=== PATIENT | female | born 1975 | race Caucasian/White ===

== ENCOUNTER 2022-11-17 09:40 | Outpatient (CLI) | payer OTHER, MEDICAID, SELFPAY ==
[2022-11-17 14:18] LABS: Cholesterol* 188 mg/dL (90-199)
[2022-11-17 14:19] LABS: Glucose* 82 mg/dL (60-115); HDL Cholesterol* 68 mg/dL (>=50); LDL Cholesterol Calculated 105 mg/dL (<100); Triglycerides* 75 mg/dL (40-149)
== END 2022-11-17 09:41 | disposition home or self-care (01) ==
PROVIDERS: Visit Provider Obstetrics & Gynecology
DX: Z01.419 Encounter for gynecological examination (general) (routine) without abnormal findings (principal); Z13.6 Encounter for screening for cardiovascular disorders; Z13.1 Encounter for screening for diabetes mellitus
CPT/HCPCS: 80061; 82947

== ENCOUNTER 2023-01-28 11:00 | Outpatient (CLI) | payer OTHER, MEDICAID, SELFPAY ==
--- NOTE | 2023-01-28 11:30 | CRLHL7_ITS ---
For Patients: As a result of the Century Cures Act, medical imaging exams and procedure reports are released immediately into your electronic medical record. You may view this report before your referring provider. If you have questions, please contact your health care provider. BILATERAL SCREENING MAMMOGRAM WITH COMPUTER-AIDED DETECTION AND TOMOSYNTHESIS TECHNIQUE: CC and MLO views were obtained. These mammographic images have been obtained using full-field digital technique. These mammographic images were interpreted with the benefit of computer-aided detection. Breast Tomosynthesis was used in this interpretation. COMPARISON FILM: Baseline. FINDINGS: The breasts are heterogeneously dense, which may obscure small masses IMPRESSION: There is no radiographic evidence for malignancy. ASSESSMENT: BI-RADS Category 1: Negative RECOMMENDATION: Routine screening mammogram in 1 year. A lay language report of this examination will be provided to the patient. Faisal Boone M.D. Diagnostic Radiologist [email or web address] MEE/roosevelt Transcribed: 4:45 p.joanna albert/Dictated by: Faisal Boone MD @ 01/28/2023 12:51:00 PM (Electronically Signed)
== END 2023-01-28 11:01 | disposition home or self-care (01) ==
LOC: MAMMO 11:01
PROVIDERS: Visit Provider Obstetrics & Gynecology
DX: Z12.31 Encounter for screening mammogram for malignant neoplasm of breast (principal); R92.2 Inconclusive mammogram
CPT/HCPCS: 77063; 77067

== ENCOUNTER 2023-03-23 22:13 | Day surgery (SDC) | payer OTHER, MEDICAID, SELFPAY ==
[2023-03-23 22:31] VITALS: BP 137/72; PULSE 83; RESP 16; TEMP 36.4; O2SAT 98; BMI 22.1
[2023-03-23 23:46] LABS: Basophils Percent Auto 0.3 % (0.0-3.0); Eosinophils Percent Auto 1.3 % (0.0-7.0); Hematocrit 42.8 % (33.0-51.0); Hemoglobin* 14.4 gm/dL (12.0-16.0); Immature Granulocytes Pct Auto 0.4 %; Lymphocytes Percent Auto 21.6 % (20-44); Mean Corpuscular HGB Conc 34 gm/dL (32-36); Mean Corpuscular Hemoglobin 29 pg (26-34); Mean Corpuscular Volume 87 fL (80-100); Monocytes Percent Auto 7.9 % (0.0-11.0); Neutrophils Percent Auto 68.5 % (42.0-72.0); Platelet Count* 297 K/uL (140-440); RDW Coefficient of Variation % 12.8 % (11.5-15.5); White Blood Count* 11.98 K/uL (4.50-11.00)
[2023-03-23 23:51] LABS: Slide Review Reflex No
[2023-03-23 23:53] LABS: Immature Granulocytes Abs Auto 0.05 K/uL (0.00-0.30)
[2023-03-24] VITALS (56 sets, daily range): BP systolic 53–119; BP diastolic 32–100; PULSE 57–105; RESP 16–18; TEMP 36.2–36.5; O2SAT 87–100
[2023-03-24] LABS: Basophils Absolute Auto 0.04 K/uL (0.00-0.30); Eosinophils Absolute Auto 0.16 K/uL (0.00-0.50); Lymphocytes Absolute Auto 2.59 K/uL (0.90-2.90); Neutrophils Absolute Auto 8.19 K/uL (1.7-7.0)
[2023-03-24] MEDS: 0.9 % SODIUM CHLORIDE 1000 ml 1,000 ML IV ×2 (00:10→01:15)
--- NOTE | 2023-03-24 00:13 | ED.NURSE ---
Pad has soaked through 2 pads since arrival to ED. Large clots noted. Reports dizziness with position change. VSS.
--- NOTE | 2023-03-24 00:20 | CRLHL7_ITS ---
For Patients: As a result of the Cures Act, medical imaging exams and procedure reports are released immediately into your electronic medical record. You may view this report before your referring provider. If you have questions, please contact your health care provider. INDICATION: Miscarriage, bleeding. TECHNIQUE: Ultrasound OB pelvis transvaginal. Real-time garcia-scale imaging of the pelvis was performed. COMPARISON: Pelvic ultrasound 03/23/2023. FINDINGS: There is an irregular, complex lesion with cystic component in the lower uterine endometrial canal/endocervical canal. This appears to represent the remnant gestational sac that was seen higher in the endometrial canal on the prior study. The uterus is otherwise unremarkable. Normal appearing right ovary. Nonvisualized left ovary. No abnormal free fluid in the pelvis. IMPRESSION: Irregular, complex lesion with cystic component in the lower uterine endometrial canal/endocervical canal, likely representing the remnant gestational sac that was seen on the prior exam. Findings compatible with a failed intrauterine gestation and incomplete miscarriage. Recommend close clinical follow-up with serial beta HCGs and repeat ultrasound, as clinically indicated. Dictated by Rolando Horton MD @ 03/24/2023 1:17:58 AM (Electronically Signed)
--- NOTE | 2023-03-24 00:52 | ED.GENADULT ---
HPI - General Adult General Chief complaint: Vaginal Bleeding Stated complaint: 11wk miscarriage pain and heavy bleeding Time Seen by Provider: 03/23/23 23:32 History of Present Illness HPI narrative: Patient reports she needs to be seen for miscarriage. Reports filling up pad in 10- 15 minutes for the past 4 hours. Denies light headedness, nausea or weakness. 47-year-old woman with active miscarriage presenting with 4 hours of heavy bleeding such that she soaking through a heavy pad every 10-15 minute she says. Has soaked through clothing as well. She is feeling little lightheaded now. Does have pain but does not feel she needs anything for pain at the moment. No fever. Was seen with ultrasound on 03/10 showing smaller than dates pole around 6 weeks. Follow-up ultrasound this morning after began spotting couple of days ago as follows FINDINGS: Intrauterine gestational sac with internal echoes. Mean sac diameter 2.6 cm, 7 weeks 4 days. pole measures 2.4 millimeters, 5 weeks 5 days no heart tones. No ectopic . No adnexal mass. IMPRESSION: Nonviable intrauterine gestation. Past medical for Ms. Gallo includes history of 2 miscarriages. First requiring a D&C and due to heavy bleeding and 2nd also received a D&C prophylactically. She is type O negative. Did receive RhoGAM during this course. Related Data Home Medications Medication Instructions Recorded Confirmed docosahexaenoic acid 200 mg mg PO 03/10/23 03/10/23 capsule ( DHA) Allergies Allergy/AdvReac Type Severity Reaction Status Date / Time Sulfa (Sulfonamide Allergy Verified 03/10/23 13:59 Antibiotics) Review of Systems Status of ROS: Reports: 6 or more systems reviewed and unremarkable except as noted in History and below [facility] Medical History Spontaneous ?O03.9 - Complete or unspecified spontaneous without complication (ICD-10) Precipitate labor, with delivery ?O62.3 - Precipitate labor (ICD-10) Positive test for human papillomavirus (HPV) (12/31/17) Normal spontaneous vaginal delivery ?O80 - Encounter for full-term uncomplicated delivery (ICD-10) Surgical History History of D&C (02/24/21) ?Z98.890 - Other specified postprocedural states (ICD-10) History of D&C (08/21/21) ?Z98.890 - Other specified postprocedural states (ICD-10) History of hysteroscopy (2006) ?Z98.890 - Other specified postprocedural states (ICD-10) History of tonsillectomy (1987) ?Z90.89 - Acquired absence of other organs (ICD-10) History of placement of ear tubes ?Z96.22 - Myringotomy tube(s) status (ICD-10) Family History Mother High blood pressure High cholesterol Father High blood pressure High cholesterol Maternal Grandmother Colon cancer Social History Smoking Status: Former smoker Do you use any of these nicotine containing products: None How often do you have a drink containing alcohol: never How often do you have six or more drinks on one occasion: Never AUDIT-C Alcohol total score: 0 Non-prescribed substance use: denies use Are you now , , , , never or living with a partner: Social isolation score (0-1 are the most socially isolated patients): 0 Little interest or pleasure in doing things: not at all Feeling down, depressed, or hopeless: not at all Are you currently sexually active: Yes Are you using contraception or practicing any form of control: No Exam Narrative: Exam Narrative: Pleasant. Seems little uncomfortable. Breathing easily. Skin is warm and dry. Well perfused peripherally. Lungs are clear. Heart with regular rate and rhythm. No murmur rub or gallop identified. Abdomen with normoactive bowel sounds is soft and quite tender across the low pelvis. exam is deferred She is accompanied by significant other Const: Vital Signs, click to edit/add: Vital Signs - 24 hr 03/23/23 22:31 03/24/23 00:10 03/24/23 00:11 Temperature 97.5 F L Pulse Rate 85 78 Pulse Rate [Pulse Oximeter] 83 Respiratory Rate 16 18 Blood Pressure 119/100 H 116/65 Blood Pressure [Ri ght Upper Arm] 137/72 Pulse Oximetry 98 98 97 Oxygen Delivery Me thod Room Air 06/06/23 00:12 03/24/23 00:12 03/24/23 00:14 Temperature Pulse Rate 78 80 Pulse Rate [Pulse Oximeter] 88 Respiratory Rate 18 Blood Pressure Blood Pressure [Ri ght Upper Arm] 119/100 H Pulse Oximetry 100 98 99 [facility] 03/24/23 00:16 03/24/23 01:02 03/24/23 01:03 Temperature Pulse Rate 83 83 88 Pulse Rate [Pulse Oximeter] Respiratory Rate Blood Pressure 116/65 Blood Pressure [Ri ght Upper Arm] Pulse Oximetry 98 100 99 Oxygen [facility] 03/24/23 01:04 03/24/23 01:06 03/24/23 01:08 Temperature Pulse Rate 88 89 94 Pulse Rate [Pulse Oximeter] Respiratory Rate Blood Pressure Blood Pressure [Ri ght Upper Arm] Pulse Oximetry 99 98 100 [facility] 03/24/23 01:10 03/24/23 01:12 03/24/23 01:14 Temperature Pulse Rate 97 104 H 70 Pulse Rate [Pulse Oximeter] Respiratory Rate Blood Pressure Blood Pressure [Ri ght Upper Arm] Pulse Oximetry 98 98 87 L [facility]xygen [facility] 03/24/23 01:16 03/24/23 01:17 03/24/23 01:18 Temperature Pulse Rate 59 L 57 L Pulse Rate [Pulse Oximeter] Respiratory Rate Blood Pressure 53/32 L 56/33 L 59/36 L Blood Pressure [Ri ght Upper Arm] Pulse Oximetry 100 100 Oxygen [facility] 03/24/23 01:21 03/24/23 01:22 03/24/23 01:24 Temperature Pulse Rate 64 65 67 Pulse Rate [Pulse Oximeter] Respiratory Rate Blood Pressure 65/40 L 88/61 L Blood Pressure [Ri ght Upper Arm] Pulse Oximetry 100 99 98 Oxygen Delivery [facility] 03/24/23 01:24 03/24/23 01:25 03/24/23 01:26 Temperature Pulse Rate 67 70 77 Pulse Rate [Pulse Oximeter] Respiratory Rate Blood Pressure 88/61 L 87/61 L Blood Pressure [Ri ght Upper Arm] Pulse Oximetry 98 98 92 Oxygen Delivery La thod 03/24/23 01:27 03/24/23 01:28 03/24/23 01:30 Temperature Pulse Rate 68 72 71 Pulse Rate [Pulse Oximeter] Respiratory Rate Blood Pressure Blood Pressure [Ri ght Upper Arm] Pulse Oximetry 99 93 100 Oxygen Delivery Me thod 03/24/23 01:31 03/24/23 01:32 03/24/23 01:34 Temperature Pulse Rate 69 66 70 Pulse Rate [Pulse Oximeter] Respiratory Rate Blood Pressure 93/59 L Blood Pressure [Ri ght Upper Arm] Pulse Oximetry 99 100 100 Oxygen Delivery Me thod 03/24/23 01:36 03/24/23 01:37 03/24/23 01:38 Temperature Pulse Rate 71 67 71 Pulse Rate [Pulse Oximeter] Respiratory Rate Blood Pressure 97/59 L Blood Pressure [Ri ght Upper Arm] Pulse Oximetry 99 99 99 Oxygen Delivery La thod 03/24/23 01:40 03/24/23 01:41 03/24/23 01:42 Temperature Pulse Rate 83 79 86 Pulse Rate [Pulse Oximeter] Respiratory Rate Blood Pressure 110/70 Blood Pressure [Ri ght Upper Arm] Pulse Oximetry 100 100 94 Oxygen Delivery Me thod 03/24/23 01:44 03/24/23 01:46 Temperature Pulse Rate 88 79 Pulse Rate [Pulse Oximeter] Respiratory Rate Blood Pressure Blood Pressure [Ri ght Upper Arm] Pulse Oximetry 100 100 Oxygen Delivery Me thod Documenting provider has reviewed patient's vital signs: yes Course Vital Signs Vital signs: Initial Vital Signs Temperature 97.5 F L 03/23/23 22:31 Temperature Source Temporal Artery Scan 03/23/23 22:31 Pulse Rate 83 03/23/23 22:31 Respiratory Rate 16 03/23/23 22:31 Blood Pressure 137/72 03/23/23 22:31 Blood Pressure Mean 93 03/23/23 22:31 Pulse Oximetry 98 03/23/23 22:31 Oxygen Delivery Method Room Air 03/23/23 22:31 Vital Signs Temperature 97.5 F L 03/23/23 22:31 Pulse Rate 83 03/23/23 22:31 Respiratory Rate 16 03/23/23 22:31 Blood Pressure 137/72 03/23/23 22:31 Pulse Oximetry 98 03/23/23 22:31 Oxygen Delivery Method Room Air 03/23/23 22:31 Temperature 97.5 F L 03/23/23 22:31 Pulse Rate 79 03/24/23 01:46 Respiratory Rate 18 03/24/23 00:12 Blood Pressure 110/70 03/24/23 01:41 Pulse Oximetry 100 03/24/23 01:46 Oxygen Delivery Method Room Air 03/24/23 00:12 Medical Decision Making MDM Narrative Medical decision making narrative: IVs initiated. I have ordered for a L normal saline and a CBC as well as pelvic ultrasound. Initially Ms. Jaffe mentions that she received ultrasound this morning but I am understanding a change in status what occurred her to continue with this. My concern is that she will have excessive hemorrhage related to this spontaneous miscarriage. Initial hemoglobin is reassuring at 14.4. I did discuss this case with OB on-call. Recommending this ultrasound be done. Discussed with supervisor plate pasting noting gestational sac nearing cervix. Radiology over-read as below IMPRESSION: Irregular, complex lesion with cystic component in the lower uterine endometrial canal/endocervical canal, likely representing the remnant gestational sac that was seen on the prior exam. Findings compatible with a failed intrauterine gestation and incomplete miscarriage. Recommend close clinical follow-up with serial beta HCGs and repeat ultrasound, as clinically indicated. Had ordered fentanyl as a p.r.n.. Given this fentanyl and pressures subsequently dropped precipitously to 50s over 40s I believe. Was quite pale on my assessment. Another line was placed. Initiated another L normal saline. Hemoglobin recheck at that time is 10.6 which I would presume is already lagging number, though affected also by the L of fluid she received. With Trendelenburg, fluids and time did improve. Pressures and color improved. I think this is more of an opiate and vasovagal effect however is rapidly trending down in hemoglobin. Have ordered 2 units of packed red cells. Discussed with Ob again who will be arriving shortly presumably to do a D&C. Lab Data Lab results reviewed: Yes I reviewed the patient's lab results Labs: Lab Results 03/23/23 03/24/23 Range/Units 23:40 01:29 WBC 11.98 H (4.50-11.00) K/uL RBC 4.90 (4.00-5.20) m/uL Hgb 14.4 10.6 L (12.0-16.0) gm/dL Hct 42.8 (33.0-51.0) % MCV 87 (80-100) fL MCH 29 (26-34) pg MCHC 34 (32-36) gm/dL RDW Coeff of Donnie 12.8 (11.5-15.5) % Plt Count 297 (140-440) K/uL Neut % (Auto) 68.5 (42.0-72.0) % Lymph % (Auto) 21.6 (20-44) % [place] % (Auto) 7.9 (0.0-11.0) % Eos % (Auto) 1.3 (0.0-7.0) % Baso % (Auto) 0.3 (0.0-3.0) % Neut # (Auto) 8.19 H (1.7-7.0) K/uL Lymph # (Auto) 2.59 (0.90-2.90) K/uL [place] # (Auto) 0.90 (0.00-0.90) K/UL Eos # (Auto) 0.16 (0.00-0.50) K/uL Baso # (Auto) 0.04 (0.00-0.30) K/uL Critical Care Time Critical Care Time Total Critical Care Time in Minutes: 45 Discharge Plan Discharge Clinical Impression: Spontaneous miscarriage, Vaginal hemorrhage Patient Disposition: XFER to OR Condition: Stable Prescriptions: No Action DHA 200 mg capsule PO Follow Up/Referrals: Janny Madison MD [Primary Care Provider] -
[2023-03-24] MEDS: fentaNYL 100 MCG/2 ML inj 50 MCG IVP (01:04)
[2023-03-24 01:42] LABS: Hemoglobin* 10.6 gm/dL (12.0-16.0)
--- NOTE | 2023-03-24 01:42 | ED.NURSE ---
At 0115 patient's came out of the room and alerted staff that patient needed hep. On writers arrival to the room patient is noted to be pale, lethargic and diaphoretic. She states that she is dizzy, nauseated and feels like she is going to pass out. Pre Planning Advisor assessed VS. Patient hypotensive at 53/32. She was placed in Trendelenburg and MD alerted. Second IV line placed. IVF started. MD in to assess patient.
--- NOTE | 2023-03-24 02:02 | ED.NURSE ---
Blood consent signed. PEDRO and Dr. Shen in to see patient. Emergent PRBC started at 0201 at a rate of 125ml/hr.
--- NOTE | 2023-03-24 02:08 | P.PCNOB_ITS ---
Procedure Procedure: DILATION AND CURRETAGE PREOPERATIVE DIAGNOSIS: 1. Incomplete 2. Acute vaginal bleeding POSTOPERATIVE DIAGNOSIS: Same PROCEDURE: 1. EUA 2. Suction dilation and curettage SURGEON: Nolvia Shen MD FLUOROSCOPE OPERATOR: None ANESTHESIA: Monitored anesthesia care FINDINGS: 1. A 6 week size, mobile, anteverted uterus, no adnexal masses on EUA 2. Cervix dilated to 4 cm with protruding gestational sac and blood clots 2. Normal external genitalia FLUIDS: 150 cc ESTIMATED BLOOD LOSS: 200 cc URINE OUTPUT: 50 cc COMPLICATIONS: None PREOP ANTIBIOTIC: 200 mg of doxycycline SPECIMEN: 1. Products of conception, sent for cytogenetics INDICATIONS: Brianna is a 47 yo , with diagnosed with an incomplete and presenting to the emergency department with acute vaginal bleeding. TVUS on presentation showed gestational sac in the lower uterine endocervical canal. During her time in the ED, her hgb decreased from 14.4 to 10.6. Additionally, she became hypotensive and tachycardic. Due to her hemodynamic instability, she was given 1 unit of packed red blood cells and prepped for an emergency dilation curettage. I reviewed how this procedure is performed. This is done in the operating room with conscious sedation and paracervical block (usually). The cervix is dilated open, a plastic curette is advanced into the uterus and connected to a vacuum. The vacuum then pulls the out of the uterus. All tissue removed from the uterus is sent to the lab for testing to verify that tissue was obtained. I do not recommend cytogenetic testing unless the patient has had more than 1 miscarriage. Ultrasound guidance is not required. Risks with a suction curettage include injury to cervix or uterus 1/400-1/500. Infection in the uterus resulting in endometritis 1/400-1/500. She will receive antibiotics in the IV in the operating room prior to the procedure to prevent infection. Chance of Asherman syndrome resulting in inability to conceive a in the future: 10/2499. Chance of anesthesia complications are extremely rare: Less than 1/100,000 especially with negative personal or family history of anesthesia issues. Expected recovery: Mild cramping after miscarriage/surgery usually controlled with hoep-ile-szazspy extra-strength Tylenol and ibuprofen. Only restriction for activity postoperatively/after a miscarriage is nothing vaginally for 2 weeks. She should expect to have some bleeding for 2-4 weeks after surgery or spontaneous miscarriage. If she continues to have bleeding past 4 weeks I would recommend a follow-up ultrasound to assess for retained products of conception. All of her questions were answered. She received Rhogam on 03/21/2023 DESCRIPTION OF PROCEDURE: The patient was taken to the operating room where monitor anesthesia care was administered. She was prepared and draped in normal sterile fashion in the dorsal lithotomy position in yellow fin stirrups, taking care to avoid lower extremity hyperextension, hyperflexion or compression. A surgical time-out was performed with the entire operative staff per protocol. Perioperative antibiotics were given. EUA revealed the above findings. Bladder was drained with a red rubber. A speculum was placed in the patient's vagina and a long Allis was placed on the anterior lip of the cervix. A ring forceps was used to grasp the products of conception presenting at the cervical os. Products of conception was able to be removed in its entirety. The cervix did not need any mechanical dilation to accommodate any of my instruments. The suction 10 suction curettage was then inserted under direct visualization. The uterus was then gently suction curetted and rotated to clear the uterus of products of conception. This was performed until a gritty texture was noted and the uterus was cleared of all remaining products of conception. There was minimal bleeding noted after the suction curettage was removed. The long allis was removed from the anterior lip of the cervix and excellent hemostasis was noted. All instruments were removed. Bimanual massage was performed resulting in excellent uterine tone. She was given 800 mcg of misoprostol rectally. Specimen was sent to pathology. The patient tolerated the procedure well. Sponge, lap and needle counts were correct x 2. The patient was taken to the recovery room in stable condition.
[2023-03-24] MEDS: ONDANSETRON 2 MG/ML inj 4 MG IVP (02:20)
--- NOTE | 2023-03-24 02:21 | ED.NURSE ---
Blood increased to 175ml/hr. Educated patient on s/s to monitor for. Patient tolerating well.
[2023-03-24] MEDS: DOXYCYCLINE HYCLATE 200 MG in 0.9 % SODIUM CHLORIDE Mini-bag 100 ML 100 MG IVPB (02:40)
--- NOTE | 2023-03-24 03:02 | P.ANES_ITS ---
Anesthesia Charges Start Date/Time Anesthesia Start Date: 03/24/23 Anesthesia Start Time: 02:36 Stop Date/Time Anesthesia Stop Date: 03/24/23 Anesthesia Stop Time: 03:22 Summary Extremes of Age - Over 70 or under 1: STUDIO COORDINATOR
[2023-03-24] MEDS: KETOROLAC 30 MG/ML inj IVP (03:05)
[2023-03-24] MEDS: miSOPROStoL 800 MCG/4 TABLET PR (03:06)
--- NOTE | 2023-03-24 05:23 | PC.NURSE ---
Pt to until at 0320. Denies pain, n/v, and diziness. VSS. D/c instructions were given verbally to pt and , copy sent home w/ pt. IVs removed with tip intact. d/c at 0500.
== END 2023-03-24 05:00 | disposition home or self-care (01) ==
LOC: ED 03-24 02:05 → SS 03-24 02:09 → MEDSURG 03-24 03:42
PROVIDERS: Emergency Provider Family Medicine; PCP Obstetrics & Gynecology; Visit Provider Obstetrics & Gynecology
PROC: (CPT 59812; principal; 2023-03-24 02:30)
DX: O03.1 Delayed or excessive hemorrhage following incomplete spontaneous abortion (principal); I95.9 Hypotension, unspecified; R00.0 Tachycardia, unspecified
CPT/HCPCS: 59812; 01965; 36415; 36430; 76817; 85018; 85025; 86850; 86870; 86880; 86900; 86901; 86922; 88233; 88262; 88305; 99100; 99140; 99284; 99285; 99291; A9270; J1170; J1885; J2250; J2405; J2704; J3010; J7030; P9016

== ENCOUNTER 2024-08-29 13:56 | Outpatient (CLI) | payer OTHER, SELFPAY ==
[2024-08-29 21:08] LABS: Chlamydia DNA Amplified* NOT DETECTED (No Detected); GC DNA Amplified* NOT DETECTED (No Detected)
[2024-09-01 21:10] LABS: HPV Source Cervix; HPV, High Risk by TMA Not Detected
== END 2024-08-29 13:57 | disposition home or self-care (01) ==
PROVIDERS: Visit Provider Obstetrics & Gynecology
DX: Z01.419 Encounter for gynecological examination (general) (routine) without abnormal findings (principal); Z34.90 Encounter for supervision of normal pregnancy, unspecified, unspecified trimester; O26.21 Pregnancy care for patient with recurrent pregnancy loss, first trimester; Z3A.00 Weeks of gestation of pregnancy not specified; Z12.4 Encounter for screening for malignant neoplasm of cervix
CPT/HCPCS: 86592; 86703; 86704; 86706; 86762; 86787; 86803; 86850; 86900; 86901; 87086; 87340; 87491; 87591; 87624; 87625; 88141; 88142

== ENCOUNTER 2024-09-02 09:07 | Outpatient (CLI) | payer OTHER, MEDICAID, SELFPAY ==
--- NOTE | 2024-09-02 09:15 | CRLHL7_ITS ---
For Patients: As a result of the Cures Act, medical imaging exams and procedure reports are released immediately into your electronic medical record. You may view this report before your referring provider. If you have questions, please contact your health care provider. INDICATION: Dating and viability. LMP 07/04/2024. COMPARISON: None. TECHNIQUE: Real-time garcia-scale imaging of the pelvis was performed. FINDINGS: Sonographic imaging demonstrates a single living intrauterine gestation. The embryo has a regular cardiac rate measuring 173 beats per minute. The embryo`s crown-rump length measures 2.2 cm which corresponds to a gestational age of 8 weeks 6 days with sonographic due date 04/08/2025. There is a normal-appearing yolk sac. The placenta has not yet developed. There is a 2.8 x 1.3 x 0.9 cm subchorionic hemorrhage in the right lower uterus and a 3.2 x 0.7 x 1.8 cm subchorionic hemorrhage in the left upper uterus. The right ovary measures 4.4 x 1.6 x 1.8 cm and the left ovary measures 3.2 x 1.6 x 2.0 cm. Corpus luteal cyst in the right ovary. No free fluid in the pelvic cul-de-sac. IMPRESSION: 1. Single living intrauterine gestation corresponding to an ultrasound gestational age of 8 weeks 6 days with sonographic due date 04/08/2025. 2. The clinical gestational age by LMP is 8 weeks 4 days. 3. Two moderate sized subchorionic hemorrhages. Dictated by Barbara Palencia MD @ 09/03/2024 2:26:09 AM (Electronically Signed)
== END 2024-09-02 09:08 | disposition home or self-care (01) ==
LOC: US 09:07
PROVIDERS: Visit Provider Registered Nurse
DX: Z34.91 Encounter for supervision of normal pregnancy, unspecified, first trimester (principal); O20.9 Hemorrhage in early pregnancy, unspecified; Z3A.08 8 weeks gestation of pregnancy
CPT/HCPCS: 76817

== ENCOUNTER 2024-09-02 10:19 | Outpatient (CLI) | payer OTHER, MEDICAID, SELFPAY | END 2024-09-02 10:20 | disposition home or self-care (01) | PROVIDERS: Visit Provider Registered Nurse | DX: Z34.91 Encounter for supervision of normal pregnancy, unspecified, first trimester (principal); Z3A.08 8 weeks gestation of pregnancy | CPT/HCPCS: 82565; 82570; 84156; 84450; 84460; 84520 ==

== ENCOUNTER 2024-09-07 05:59 | Outpatient (CLI) | payer OTHER, SELFPAY | END 2024-09-07 06:00 | disposition home or self-care (01) | LOC: NFLDREF 09-10 04:32 | PROVIDERS: Visit Provider Registered Nurse | DX: O16.1 Unspecified maternal hypertension, first trimester (principal) | CPT/HCPCS: 82570; 84156 ==

== ENCOUNTER 2024-11-23 07:32 | Outpatient (CLI) | payer OTHER, SELFPAY | END 2024-11-23 07:33 | disposition home or self-care (01) | LOC: US 07:32 | PROVIDERS: Visit Provider Obstetrics & Gynecology | DX: O10.912 Unspecified pre-existing hypertension complicating pregnancy, second trimester (principal); O09.522 Supervision of elderly multigravida, second trimester; Z3A.20 20 weeks gestation of pregnancy | CPT/HCPCS: 76811 ==

== ENCOUNTER 2025-01-20 10:02 | Outpatient (CLI) | payer OTHER, SELFPAY ==
--- NOTE | 2025-01-20 10:15 | CRLHL7_ITS ---
For Patients: As a result of the Century Cures Act, medical imaging exams and procedure reports are released immediately into your electronic medical record. You may view this report before your referring provider. If you have questions, please contact your health care provider. OB ULTRASOUND CAROLA by LMP or US: 04/10/2025. GA: 28 w, 4 d. Single. Comparison: 11/23/2024, 09/02/2024. INDICATION: Advanced maternal age. TECHNIQUE: Real time grayscale imaging of the fetus was performed. Transabdominal. CERVIX: Not visualized. POSITIONING: Transverse, right. AMNIOTIC FLUID: 4.2 cm. SDP (N: greater than 2 x 1 cm) PLACENTA: Technique: Transabdominal. PLACENTA POSITION: Posterior. DOPPLER: heart rate: 146 bpm. BIOMETRY: BPD: 7.1 cm. 28 w, 3 d, 33.7 percent. HC: 26.4 cm. 28 w, 5 d, 21.3 percent. AC: 24.1 cm. 28 w, 3 d, 37.6 percent. FL: 5.2 cm. 27 w, 5 d, 14.7 percent. FL/AC ratio: 21.55 percent. HC/AC ratio: 1.09. EFW: 1191 g. Weight: 2 lbs, 10 oz. age by this US: 28 w, 2 d. CAROLA by this US: 04/12/2025. Percentile by CAROLA: 24.6 percent. IMPRESSION: 1. Sonographic gestational age 28 weeks 2 days with sonographic due dated 04/12/2025. Good correlation with dates. Normal interval growth. Transabdominal. 2. Estimated weight 25th percentile. Abdominal circumference 38th percentile. 3. Residual blood products noted inferiorly measuring 9.2 x 3.0 x 8.1 cm. Faisal Boone M.D. Diagnostic Radiologist [email or web address] MEE/roosevelt albert/Dictated by: Faisal Boone MD @ 01/20/2025 11:33:00 AM (Electronically Signed)
== END 2025-01-20 10:03 | disposition home or self-care (01) ==
LOC: US 10:02
PROVIDERS: Visit Provider Obstetrics & Gynecology
DX: O09.523 Supervision of elderly multigravida, third trimester (principal); Z3A.28 28 weeks gestation of pregnancy
CPT/HCPCS: 76816

== ENCOUNTER 2025-01-20 11:04 | Outpatient (CLI) | payer OTHER, MEDICAID, SELFPAY | END 2025-01-20 11:05 | disposition home or self-care (01) | LOC: NFLDREF 11:05 | PROVIDERS: Visit Provider Obstetrics & Gynecology | DX: Z34.83 Encounter for supervision of other normal pregnancy, third trimester (principal); Z67.41 Type O blood, Rh negative | CPT/HCPCS: 86592; 86850; J2791 ==

== ENCOUNTER 2025-02-28 09:59 | Outpatient (CLI) | payer OTHER, MEDICAID, SELFPAY ==
--- NOTE | 2025-02-28 10:15 | CRLHL7_ITS ---
For Patients: As a result of the Cures Act, medical imaging exams and procedure reports are released immediately into your electronic medical record. You may view this report before your referring provider. If you have questions, please contact your health care provider. OB ULTRASOUND LMP: 07/04/2024. CAROLA by LMP: 04/10/2025. GA: 34 w, 1 d. Single. Comparison: 01/20/2025, 11/23/2024. INDICATION: AMA. TECHNIQUE: Real time garcia scale imaging of the fetus was performed. Transabdominal. CERVIX: Visualized. Measurement: 4.8. POSITIONING: Transverse. AMNIOTIC FLUID: 5.6 cm. SDP (N: greater than 2 x 1 cm) PLACENTA: Technique: Transabdominal. PLACENTA POSITION: Posterior. DOPPLER: heart rate: 157 bpm. BIOMETRY: BPD: 8.2 cm. 32 w, 6 d, 14 percent. HC: 30.6 cm. 34 w, 0 d, 15 percent. AC: 29.8 cm. 33 w, 6 d, 43 percent. FL: 6.2 cm. 32 w, 1 d, 5 percent. FL/AC ratio: 20.83 percent. HC/AC ratio: 1.03. EFW: 2157 g. Weight: 4 lbs, 12 oz. age by this US: 33 w, 2 d. CAROLA by this US: 04/16/2025. Percentile by CAROLA: 21 percent. IMPRESSION: 1. Sonographic gestational age 33 weeks 2 days and sonographic due date 04/16/2025. Sonographic age is 6 days behind the clinical age. 2. Estimated weight 21st percentile. Abdominal circumference 43rd percentile. Faisal Boone M.D. Diagnostic Radiologist [email or web address] MEE/hugh JR/Dictated by: Faisal Boone MD @ 02/28/2025 10:47:00 AM (Electronically Signed)
== END 2025-02-28 10:00 | disposition home or self-care (01) ==
LOC: US 09:59
PROVIDERS: Visit Provider Obstetrics & Gynecology
DX: O09.523 Supervision of elderly multigravida, third trimester (principal); O36.5930 Maternal care for other known or suspected poor fetal growth, third trimester, not applicable or unspecified; Z3A.34 34 weeks gestation of pregnancy
CPT/HCPCS: 76816

== ENCOUNTER 2025-03-07 17:11 | Emergency (ER) | payer OTHER, MEDICAID, SELFPAY ==
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
[2025-03-07 17:34] VITALS: BP 144/75; PULSE 93; RESP 12; TEMP 37; O2SAT 97; BMI 27.8
[2025-03-07 17:42] VITALS: BP 128/84
--- NOTE | 2025-03-07 18:12 | CRLHL7_ITS ---
For Patients: As a result of the Cures Act, medical imaging exams and procedure reports are released immediately into your electronic medical record. You may view this report before your referring provider. If you have questions, please contact your health care provider. Indication: Trauma. Technique: Right ankle, 3 views. Comparison: None. Findings/Impression: Bones: Alignment is normal. No displaced fractures or bone lesions. Joint spaces: Unremarkable. Soft tissues: Unremarkable. Dictated by Smith Herman MD @ 03/07/2025 7:06:35 PM (Electronically Signed)
--- OUTSIDE RECORDS SUMMARY | 2025-03-07 18:22 | XMS_ITS | Clinical Summary ---
Author Organization [employer] [facility] Address [address] [place] [id number] Care Team Providers Care Saddle Cutter Name Role Phone Pcp, No Primary Care [...] 12/26/2011 Overview (11/30/2017): Prescriber: Dr. Alden Cruz, [facility] Carlos Coles MD Ok to fill at same amount/dose/frequency in my absence. Controlled substance agreement: 03/24/13 SALES TECHNICIAN HOME THEATER query on 10/01/17 was acceptable. Last UDS [...] AM CDT Legal Sex Female 7:20 AM SUPERVISOR PARTICLEBOARD Gender Identity Female 06/09/2022 10:36 AM CDT [...] HPV HIGH RISK Routine 11/17/2022 9:45 AM SUPERVISOR PARTICLEBOARD ANTI HIV 1/2 Routine 06/21/2008 12:50 PM CDT Amenorrhea LIPID PANEL Timed 06/23/2006 9:16 AM CDT from Last 3 Months or Most Recently Relevant to Health Maintenance Results * (ABNORMAL) HPV HIGH RISK (11/17/2022 9:45 AM SUPERVISOR PARTICLEBOARD) TYPE 16 Negative Negative 11/20/2022 10:57 AM SUPERVISOR PARTICLEBOARD [facility] TYPE 18 Negative Negative 11/20/2022 10:57 AM SUPERVISOR PARTICLEBOARD [facility] TR[facility] LAB[facility] OTHER HIGH RISK TYPES Positive(A) Negative 11/20/2022 10:57 AM SUPERVISOR PARTICLEBOARD [facility] TR[facility] Other (Cervical) 11/17/2022 9:45 AM SUPERVISOR PARTICLEBOARD 11/18/2022 11:45 AM SUPERVISOR PARTICLEBOARD Narrative [facility] - 11/20/2022 10:57 AM SUPERVISOR PARTICLEBOARD Specimen is positive for the DNA of any one of, or combination of, the following high risk HPV types: 31, 33, 35, 39, 45, 51, 52, 56, 58, 59, 66, 68. HPV types 16 and 18 DNA were undetectable or below the pre-set threshold. Methodology: Juan July 4800 HPV Test us Janny Madison MD MICROBIOLOGY Final Resu lt [facility]AL LAB[facility]ORY [address] [place] [address], * ANTI HIV 1/2 (06/21/2008 12:50 PM CDT) ANTI HIV 1/2 Non-reacti ve [facility] Blood specimen (specimen) BLOOD SPECIMEN / Unknown 06/21/2008 12:50 PM CDT 06/21/2008 12:41 PM CDT us Carlos Coles MD SEND OUTS Final Re sult [facility] INTERNAL ZIP [id number] [place] [id number] * LIPID PANEL (06/23/2006 9:16 AM CDT) CHOLESTEROL,TOTAL 142 110 - 199 mg/dL [facility] TRIGLYCERIDES 70 <150 mg/dL [facility] HDL CHOLESTEROL 49 >40 mg/dL [facility] CHOL/HDL RATIO 2.90 <4.51 [facility] LDL CHOLESTEROL 79 <131 mg/dL [facility] PATIENT STATUS Fasting [facility] 06/23/2006 9:16 AM CDT 06/23/2006 9:16 AM CDT Carlos Coles MD CHEMISTRY Final Re sult [facility] [address] [place] [address] from Last 3 Months or Most Recently Relevant to Health Maintenance Insurance [facility] MR [facility] FAMILY INSURANCE Care Teams Saddle Cutter Relationship Specialty Start Date End Date Pcp, No . PCP - General 10/24/24
--- NOTE | 2025-03-07 18:38 | ED.LOWEXIN ---
HPI - Extremity Injury (Lower) General Date Seen: 03/07/25 Chief Complaint: Extremity Pain/Injury, Lower Stated Complaint: Hurt RT ankle, mikelen Time Seen by Provider: 03/07/25 17:47 Source: patient Mode of arrival: ambulatory Limitations: no limitations History of Present Illness HPI Narrative: Patient is a 49-year-old female who is currently 37 weeks presenting to the emergency department for right ankle pain. She states she was walking on steps when she twisted her ankle and fell down about 5 steps. States she basically jumped from the 5th step to the ground level where she landed on her hands and left knee. Denies hitting her abdomen at all. Denies any abdominal pain at this time. No other concerns noted. States other pain is on the lateral aspect of the right ankle. States she felt like she heard a pop. Denies any numbness. No other concerns noted Related Data Home Medications ?Medication ?Instructions ?Recorded ?Confirmed aspirin 81 mg tablet,delayed 81 mg PO QDAY 11/25/24 03/07/25 release Previous Rx's ?Medication ?Instructions ?Recorded PNV no.151-iron 27 mg-folic 800 1 cap PO DAILY #100 caps 08/30/24 mcg-omega3 260 et-tqs-erf-fish capsule ( Multi-DHA (with vitamin K)) miscellaneous medical supply #1 ea 09/21/24 (Blood Pressure Cuff) Allergies Allergy/AdvReac Type Severity Reaction Status Date / Time Sulfa (Sulfonamide Allergy Hives Verified 03/07/25 17:34 Antibiotics) Review of Systems Status of ROS: Reports: 10 or more systems reviewed and unremarkable except as noted in History and below [facility] Medical History (Updated 03/07/25 @ 19:12 by Ludwig Darling DO) Rh negative status during ?O26.899 - Other specified related conditions, unspecified trimester (ICD-10) ?Z67.91 - Unspecified blood type, rh negative (ICD-10) 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) Surgical History (Updated 09/13/24 @ 15:30 by Ashley Barron) Normal spontaneous vaginal delivery ?O80 - Encounter for full-term uncomplicated delivery (ICD-10) Status post D&C (03/24/23) ?Z98.890 - Other specified postprocedural states (ICD-10) History of D&C (02/24/21) ?Z98.890 - Other specified postprocedural states (ICD-10) History of D&C (08/21/21) ?Z98.890 - Other specified postprocedural states (ICD-10) History of hysteroscopy (2006) ?Z98.890 - Other specified postprocedural states (ICD-10) History of tonsillectomy (1987) ?Z90.89 - Acquired absence of other organs (ICD-10) History of placement of ear tubes ?Z96.22 - Myringotomy tube(s) status (ICD-10) Family History Mother High blood pressure High cholesterol Father High blood pressure High cholesterol Maternal Grandmother Colon cancer Social History What is your current living situation?: I presently have a place to live Problems where you live: no known problems In the past 12 months, utilities in danger of being shut off: no In past 12 months, lack of transportation kept you from medical appts, meetings, work, or getting things needed for daily living: no In the past 12 mos, have been you worried that your food would run out before you had money to buy more?: never true In the past 12 mos, the food you bought just didn't last and you didn't have money to buy more?: never true Smoking Status: Former smoker Do you use any of these nicotine containing products: None How often do you have a drink containing alcohol: never How often do you have six or more drinks on one occasion: Never AUDIT-C Alcohol total score: 0 Non-prescribed substance use: denies use Are you now , , , , never or living with a partner: Social isolation score (0-1 are the most socially isolated patients): 0 How often does anyone, including family, friends and others, physically hurt you: never How often does anyone, including family, friends and others, insult or talk down to you: never How often does anyone, including family, friends and others, threaten you with harm: never How often does anyone, including family, friends and others, scream or curse at you: never Are you currently sexually active: Yes Are you using contraception or practicing any form of control: No Exam Narrative: Exam Narrative: Const: Well-nourished, Well-developed, in mild distress Eyes: PERRL, no conjunctival injection, and symmetrical lids HENT: Atraumatic external nose and ears. Moist mucous membranes. CVS: Dorsalis pedis pulse +2 bilaterally, cap refill less than 2 seconds GI: Nontender, gravid abdomen, No rebound or guarding. MSK: Swelling noted to her right ankle some mild bruising a noted around the lateral malleolus. No tenderness noted to rest of her foot or ankle. Skin: Warm, Dry. No rashes or lesions. Neuro: Normal Muscle tone, No focal neurological deficits. Psych: Awake, Alert, & Oriented x3. Appropriate mood and affect. Const: Vital Signs, click to edit/add: Vital Signs - 24 hr 03/07/25 17:34 03/07/25 17:42 Temperature 98.6 F Pulse Rate [Pulse Oximeter] 93 Respiratory Rate 12 Blood Pressure 128/84 Blood Pressure [Ri ght Upper Arm] 144/75 H Pulse Oximetry 97 Oxygen Delivery Me thod Room Air Course Vital Signs Vital signs: Initial Vital Signs Temperature 98.6 F 03/07/25 17:34 Temperature Source Temporal Artery Scan 03/07/25 17:34 Pulse Rate 93 03/07/25 17:34 Pulse Rhythm Regular 03/07/25 17:34 Respiratory Rate 12 03/07/25 17:34 Blood Pressure 144/75 H 03/07/25 17:34 Blood Pressure Mean 98 03/07/25 17:34 Blood Pressure Position Sitting 03/07/25 17:34 Pulse Oximetry 97 03/07/25 17:34 Oxygen Delivery Method Room Air 03/07/25 17:34 Vital Signs Temperature 98.6 F 03/07/25 17:34 Pulse Rate 93 03/07/25 17:34 Respiratory Rate 12 03/07/25 17:34 Blood Pressure 144/75 H 03/07/25 17:34 Pulse Oximetry 97 03/07/25 17:34 Oxygen Delivery Method Room Air 03/07/25 17:34 Temperature 98.6 F 03/07/25 17:34 Pulse Rate 93 05/20/25 17:34 Respiratory Rate 12 03/07/25 17:34 Blood Pressure 128/84 03/07/25 17:42 Pulse Oximetry 97 03/07/25 17:34 Oxygen Delivery Method Room Air 03/07/25 17:34 MDM - Extremity Injury (Lower) MDM Narrative Medical decision making narrative: Patient is a 49-year-old female presenting for right ankle pain. Will do an x-ray of this right ankle. No tenderness noted to rest of the joints. I did speak to the on-call Ob/Gyne, Dr. Hahn, who recommends 20 minutes of monitoring and reactive tracing considering the patient's 37 weeks . X-ray reviewed by myself and the radiologist shows no acute concerning abnormalities. Reactive tracing was unremarkable. Patient will be discharged home. Imaging Data Right ankle x-ray: Radiologist's impression: Bones: Alignment is normal. No displaced fractures or bone lesions. Joint spaces: Unremarkable. Soft tissues: Unremarkable. Dictated by Smith Herman MD @ 03/07/2025 7:06:35 PM Discharge Plan Discharge Clinical Impression: Right ankle sprain Qualifiers: Encounter type: initial encounter Involved ligament of ankle: unspecified ligament Qualified Code(s): S93.401A - Sprain of unspecified ligament of right ankle, initial encounter Patient Disposition: Home, Self-Care Condition: Stable Instructions: Ankle Sprain (DC) Additional Instructions: Take Tylenol for pain. keep ankle elevated when at rest. Return for new or worsening symptoms. Prescriptions: No Action Multi-DHA(with vit K) 27 mg iron-800 mcg-260 mg capsule 1 cap PO DAILY Qty: 100 2RF aspirin 81 mg tablet,delayed release (DR/EC) 81 mg PO QDAY (DME) Blood Pressure Cuff Misc See Rx Instructions .Route Qty: 1 0RF Rx Instructions: As directed Follow Up/Referrals: Provider,Not a Local [Primary Care Provider, Family Practice] Stand Alone Forms: [employer] Info Instructions
--- NOTE | 2025-03-07 19:39 | PC.OBNST ---
NST Note NST Note Start: 03/07/25 19:31 Freq: ONCE Status: Active Protocol: Document 03/07/25 19:34 JRS (Rec: 03/07/25 19:35 JRS No Response) NST Note 7 Para (# of births) 4 EDC 04/10/25 Gestational Age In 35 Weeks & 1 Days Weeks & Days Patient Presented Other with Complaint(s) of Other Complaints Feel and hurt her ankle. She did not fall on her abd. Reactive Yes Appropriate for Yes Gestational Age COMPA Dick RN Date 03/07/25 Reactive Yes Appropriate for Yes Gestational Age COMPA Arrington RN Date 03/07/25 OB NST charge Yes Complete NST Note Yes via Write Note The provider's electronic signature indicates the NST is reactive/appropriate for gestational age. *Note to provider: If an addendum is required, open the patient's chart and click on the note under the Nurse/Allied Health tab.
== END 2025-03-07 19:50 | disposition home or self-care (01) ==
PROVIDERS: Emergency Provider Student in an Organized Health Care Education/Training Program
DX: O9A.213 Injury, poisoning and certain other consequences of external causes complicating pregnancy, third trimester (principal); S93.401A Sprain of unspecified ligament of right ankle, initial encounter; W10.9XXA Fall (on) (from) unspecified stairs and steps, initial encounter; Z3A.37 37 weeks gestation of pregnancy; Z87.891 Personal history of nicotine dependence
CPT/HCPCS: 59025; 73610; 99283; 99284

== ENCOUNTER 2025-03-14 09:45 | Outpatient (CLI) | payer OTHER, MEDICAID, SELFPAY | END 2025-03-14 09:46 | disposition home or self-care (01) | LOC: NFLDREF 03-16 17:45 | PROVIDERS: Visit Provider Obstetrics & Gynecology | DX: Z34.83 Encounter for supervision of other normal pregnancy, third trimester (principal) | CPT/HCPCS: 87081; 87653 ==

== ENCOUNTER 2025-03-31 08:47 | Outpatient (CLI) | payer OTHER, MEDICAID, SELFPAY ==
[2025-03-31 09:10] VITALS: BP 130/78; PULSE 57
--- NOTE | 2025-03-31 10:08 | PC.OBNST ---
NST Note NST Note Start: 03/31/25 08:57 Freq: ONCE Status: Active Protocol: Document 03/31/25 10:00 DDY (Rec: 03/31/25 10:08 [facility] [id number]) NST Note 8 Para (# of births) 4 EDC 04/10/25 Gestational Age In 38 Weeks & 4 Days Weeks & Days Patient Presented Other with Complaint(s) of Other Complaints ECV Reactive Yes Appropriate for Yes Gestational Age COMPA Pacheco RN Date 03/31/25 Reactive Yes Appropriate for Yes Gestational Age COMPA Newsome RNC Date 03/31/25 OB NST charge Yes Complete NST Note Yes via Write Note The provider's electronic signature indicates the NST is reactive/appropriate for gestational age. *Note to provider: If an addendum is required, open the patient's chart and click on the note under the Nurse/Allied Health tab.
== END 2025-03-31 10:00 | disposition home or self-care (01) ==
LOC: OB 09:56 → OB CLI 10:28 → OB 10:29
PROVIDERS: Visit Provider Obstetrics & Gynecology
DX: O32.1XX0 Maternal care for breech presentation, not applicable or unspecified (principal); Z3A.38 38 weeks gestation of pregnancy
CPT/HCPCS: 59025; 76815; G0463

== ENCOUNTER 2025-04-03 16:02 | Inpatient (IN) | payer OTHER, MEDICAID, SELFPAY ==
[2025-04-03] VITALS (8 sets, daily range): BP systolic 123–143; BP diastolic 67–82; PULSE 58–75; RESP 16; TEMP 36.9; O2SAT 97–98; BMI 28.7
[2025-04-03 16:48] LABS: Basophils Absolute Auto 0.04 K/uL (0.00-0.30); Basophils Percent Auto 0.5 % (0.0-3.0); Eosinophils Absolute Auto 0.04 K/uL (0.00-0.50); Eosinophils Percent Auto 0.5 % (0.0-7.0); Hematocrit 41.7 % (33.0-51.0); Hemoglobin* 13.7 gm/dL (12.0-16.0); Immature Granulocytes Abs Auto 0.08 K/uL (0.00-0.30); Lymphocytes Absolute Auto 1.55 K/uL (0.90-2.90); Lymphocytes Percent Auto 20.2 % (20-44); Mean Corpuscular HGB Conc 33 gm/dL (32-36); Mean Corpuscular Hemoglobin 29 pg (26-34); Mean Corpuscular Volume 88 fL (80-100); Monocytes Percent Auto 8.6 % (0.0-11.0); Neutrophils Percent Auto 69.2 % (42.0-72.0); Platelet Count* 197 K/uL (140-440); RDW Coefficient of Variation % 14.1 % (11.5-15.5); Red Blood Count 4.75 m/uL (4.00-5.20); White Blood Count* 7.67 K/uL (4.50-11.00)
[2025-04-03 16:50] LABS: Slide Review Reflex No
[2025-04-03 17:07] LABS: Alanine Aminotransferase* 19 U/L (4-35); Aspartate Amino Transferase* 27 U/L (12-35); Blood Urea Nitrogen* 7 mg/dL (5-24); Creatinine* 0.7 mg/dL (0.5-1.5); Est. Creatinine Clearance* 78.58; Estimated Glomerular Filt Rate 107 ml/min
[2025-04-03] MEDS: miSOPROStoL 25 MCG/0.25 TABLET VAGINAL (18:02)
--- NOTE | 2025-04-03 18:28 | P.LDBA_ITS ---
Subjective History of Present Illness Time Seen by Provider: 18:28 Date Seen: 04/03/25 Narrative: Patient is being admitted to Labor and Delivery for IOL due to AMA and possible chronic hypertension. She is a 49 year old at 39.0 weeks gestation. Her full history and physical was dictated by Dr. Madison on 03/20/25. Please see this for details. First few BP on admission are mild ranging. Pre-e labs obtained. Denies any persistent headache, vision changes, SOB, right upper quadrant/epigastric pain, or rapidly expanding edema. Pre-E labs on 04/03/25: Hgb 13.7, plt 197, Cr 0.7, AST 27, ALT 19 Specific Issues/Plans + 1 adopted child : Ron # Unstable lie, with transverse lie noted 03/27. * External cephalic version scheduled for 03/31, IOL 04/03 # Hep B nonimmune. Discussed on 09/19, patient prefers to wait for vaccination until after upcoming trip. Still considering (11/25/24). # Advanced maternal age. Patient will be 49 years old at time of delivery. * [place] test drawn 09/19: Low risk/normal, consistent with female sex, RhD detected * Level 2 ultrasound: 11/23/2024. No anomalies. Posterior placenta without previa. EFW 26%, AC 40%, MVP 4.3 cm. Recommendations: Growth ultrasounds at 28 and 34 weeks, weekly BPP or NST beginning at 36 weeks. * Growth US at 28 weeks: EFW 24.6%, BPD 33.7%, HC 21%, AC 37.6%, FL 15%, MVP 4.2 cm, transverse position, hypoechoic area along inferior aspect of placenta measuring 9.2 x 3.0 x 8.1 cm * Growth US at 34 weeks: scheduled * Weekly testing starting at 36 weeks (NSTs): scheduled * Delivery at 39 weeks # elevated blood pressure / possible chronic HTN On no medication Baseline pre E labs: Normal BUN, creat, AST, ALT, P/C 0.17, Total protein 12. 24 hour urine: P/C 0.05 Total protein 24 hour 72.0 Total protein 6 Recheck blood pressure next visit 130/78. If elevated, consider antihypertensive medication. Recommend home BP monitoring Recommend daily low-dose aspirin starting at 12 weeks. # GBS positive. Ampicillin in labor. Flu: Recommended. Declines. Covid: Not vaccinated. Recommended. Declines. RH negative. Fetus anti-D positive on [place]. Rhogam. 01/20/25 Tdap: given 01/30/25 RSV: [] H&P: [] Imaging: * Level 2 ultrasound: 11/23/2024. No anomalies. Posterior placenta without previa. EFW 26%, AC 40%, MVP 4.3 cm. Recommendations: Growth ultrasounds at 28 and 34 weeks, weekly BPP or NST beginning at 36 weeks. * Growth US at 28 weeks: EFW 24.6%, BPD 33.7%, HC 21%, AC 37.6%, FL 15%, MVP 4.2 cm, transverse position, hypoechoic area along inferior aspect of placenta measuring 9.2 x 3.0 x 8.1 cm * 02/28/25: Transverse, SDP 5.6 cm, posterior placenta, EFW 21%, AC 43%, BPD 14%, HC 15%, FL 5%. 32 week mental health: PHQ-9 2, BETTYE-7 1 Last pap: 08/29/24: [] OB - Problem Based A/P Additional Plan (1) Chronic hypertension: Status: Acute Plan: - Pending P/C ratio to assess for superimposed preeclampsia (2) Migraine with aura: Status: Chronic (3) Advanced maternal age (AMA) in : Problem details: On 09/02/24 US: Sonographic Due Date 04/08/25. Status: Acute (4) History of abnormal cervical Pap smear: Problem details: 12/31/2017: NIL +HPV. 09/19/2020: NIL +HPV. 11/05/2020: Colposcopic bx neg. 11/17/2022: UNS +HPV. 12/15/2022: UNS colposcopic bx neg; ECC neg. 08/29/24 pap: pending Status: Acute Plan Induction - SVE cl/thi/hi - Vina irregular contractions - Pain management plan: Wanting to go without epidural - Misoprostol PV per protocol. Will reassess positioning with SVE or US PRN prior redosing misoprostol Wellbeing Admission US: Presentation cephalic NST: 130 bpm, moderate variability, positive accelerations, negative decelerations. Cat 1 Vina: Irregular OB Exam Physical Exam Vital signs: Pulse BP Pulse Ox 60 128/67 98 04/03/25 18:27 04/03/25 18:27 04/03/25 16:25 Narrative: Physical exam: General: No acute distress Psych: Alert and oriented x4, full affect HEENT: Normocephalic, atraumatic Lungs: Unlabored breathing Abdomen: Gravid. soft, no tenderness, rebound, or guarding. Cephalic position on palpation. Lower extremities: No edema or erythema Pelvic exam: Cl/thi/hi, moderately soft, mid
[2025-04-03 19:22] LABS: Total Protein Urine 14 mg/dL
[2025-04-03 19:23] LABS: Creatinine Urine 79.7 mg/dL; Protein Creatinine Ratio Urine 0.18 (0-0.19)
[2025-04-03] MEDS: AMPICILLIN 2 GM in 0.9 % SODIUM CHLORIDE Mini-bag 100 ML IVPB (22:39)
[2025-04-03] MEDS: LACTATED RINGERS 1000 ML 1,000 ML 125 ML IV (22:41)
[2025-04-04] VITALS (23 sets, daily range): BP systolic 108–152; BP diastolic 63–84; PULSE 58–78; RESP 14–20; TEMP 36.6–36.9; O2SAT 95–97
[2025-04-04] MEDS: OXYTOCIN 30 unit/500 ML in NS 30 UNIT/500 ML BAG 300 UNIT IVPB (00:20)
[2025-04-04] MEDS: LIDOCAINE 1 % PF 30 ML INJECTION (00:23)
--- NOTE | 2025-04-04 00:47 | W.PM.VAGDEL1 ---
Procedure Delivery date: 04/04/25 Procedure Done: Global Events: Chronic Hypertension Intrapartal Events: Labor Induction Delivery monitor: external FHT Route of delivery: Laceration description: Perineal - 1st Degree Delivery repair: Vicryl Estimated blood loss (mL): 100 Narrative: The patient is a 49 year-old G 8 P 4034 admitted on 04/03/2025 at 39 and 1/7 weeks gestation for chronic hypertension and AMA. She received 1 dose of 25mcg of misoprostol vaginal and went into labor. GBS positive, ampicillin intrapartum Labor Analgesia: None Pitocin: Only for active 3rd stage management SROM: 04/03/25 at 2332, with clear fluid Complete: 04/04/25 at 0008 and started involuntarily pushing. heart tones during second stage were II due to deep variables but resolved in between contractions. At 0014 a viable female was delivered precipitously. The infant was placed on maternal abdomen when I arrived. The cord was clamped and cut after a 60 second delay. The nose and mouth were bulb suctioned. weight: pending. 8 at 1 minute and 8 at 5 minutes. Shoulder dystocia: No. Nuchal cord: No Placenta delivered spontaneously and complete at 0019 with a 3-vessel cord. Placenta examined and noted to be complete. Minimal blood in umbilical cord Placenta was sent to pathology due to chronic HTN. The cervix and vagina were inspected for lacerations, and 1st degree was noted. Laceration(s): 1st degree, repaired with 2-0 vicryl in a continuous fashion Complications: None Estimated blood loss: 100 cc Sponge and needles counts are correct. Mother and infant were stable at the time of this note.
[2025-04-04] MEDS: IBUPROFEN 600 MG TABLET PO ×3 (01:03→20:01)
[2025-04-04] MEDS: ACETAMINOPHEN 500 MG TABLET 1000 MG PO ×2 (09:06→17:49)
[2025-04-04] MEDS: DOCUSATE SODIUM 100 MG CAPSULE PO (09:06)
[2025-04-05 00:49] VITALS: BP 137/84; PULSE 79; RESP 18; TEMP 36.5; O2SAT 97
[2025-04-05 05:09] VITALS: BP 121/77; PULSE 87; RESP 16; TEMP 36.8; O2SAT 98
[2025-04-05 06:40] LABS: Hemoglobin* 11.1 gm/dL (12.0-16.0)
[2025-04-05 08:05] VITALS: BP 119/76; PULSE 67; RESP 16; TEMP 36.7; O2SAT 98
--- NOTE | 2025-04-05 09:35 | PM.OBDSVD1 ---
DS: Providers Provider Date Seen: 04/05/25 Date of admission: 04/03/25 16:02 Primary care physician: Not a Local Provider Admitting Clinician: Nolvia Shen MD Attending Physician on discharge: Nolvia Shen MD Date of Discharge: 04/05/25 DS: Diagnosis Discharge Diagnosis (1) Lactating mother: Status: Acute (2) care following vaginal delivery: Status: Acute (3) Chronic hypertension: Status: Acute (4) History of abnormal cervical Pap smear: Status: Acute Problem details: 12/31/2017: NIL +HPV. 09/19/2020: NIL +HPV. 11/05/2020: Colposcopic bx neg. 11/17/2022: UNS +HPV. 12/15/2022: UNS colposcopic bx neg; ECC neg. 08/29/24 pap: pending Exam Narrative: Exam Narrative: GENERAL APPEARANCE:? normal affect, alert, no distress? MOOD:? appropriate? CHEST:? clear to auscultation and percussion? HEART:? regular rate and rhythm? ABDOMEN:? soft, non-tender the uterine fundus is U/2 and is appropriate for the stage of recovery.? PERINEUM:? mild edema of the perineum, there is a 1st degree laceration that is healing well.? EXTREMITIES:? normal and no edema? Const: Vital Signs, click to edit/add: Vital Signs - 24 hr 04/04/25 11:54 04/04/25 15:00 04/04/25 20:00 Temperature 98.4 F 98.2 F 97.8 F Pulse Rate [Pulse Oximeter] 78 72 74 Respiratory Rate 16 20 18 Blood Pressure [Le ft Arm] 115/73 108/69 120/78 Pulse Oximetry 95 97 97 Oxygen Delivery Me thod Room Air Room Air Room Air 04/05/25 00:49 04/05/25 05:09 04/05/25 08:05 Temperature 97.7 F 98.2 F 98.1 F Pulse Rate [Pulse Oximeter] 79 87 67 Respiratory Rate 18 16 16 Blood Pressure [Le ft Arm] 137/84 121/77 119/76 Pulse Oximetry 97 98 98 Oxygen Delivery Me thod Room Air Room Air Room Air Documenting provider has reviewed patient's vital signs: yes OB - DS: Summary Hospital Course Hospital Course: Brianna is a 49 y.o. G 8 P 4 who was admitted to [facility] for AMA and chronic hypertension. ?She had a NVD that was uncomplicated. The patient feels well. ?The pain is well controlled with current medications. ?She has no new complaints. ?She is breast feeding and reports things are going well. the patient has done well.? Vitals have been stable.? She has remained afebrile.? Has a good appetite, is tolerating a general diet. ?She is voiding without difficulty.? She is passing gas and has had a bowel movement.? She is ambulating and denies any dizziness.? Has small amount of rubra lochia. She is planning progestin oral contraceptive for prevention. She will continue to monitor her blood pressures at home BID. Preeclampsia symptoms were reviewed. Peripartum Data Infant delivery method: Vaginal Laceration description: Perineal - 1st Degree Episiotomy description: None complications: none Infant Gender: Female Infant Discharge Plan: Home Status at Discharge Functional status at discharge: independent ambulation Overall status at discharge: patient is progressing back to baseline Time Spent with Patient Time attestation: Total time spent providing and/or coordinating discharge services: Discharge Plan Discharge Disposition: Home, Self-Care Date of Admission: 04/03/25 16:02 Attending Provider on Discharge: Niecy Pedraza Consulting Providers: Janny Madison Primary Care Provider: Provider,Not a Local Condition: Stable Anticipated Discharge Date/Time: 04/05/25 14:00 Discharge Medications: New docusate sodium 100 mg Capsule 100 mg PO DAILY Qty: 100 0RF Rx Instructions: Take 1-2 tablets daily as needed for constipation. ibuprofen 600 mg Tablet 600 mg PO Q6H PRNQty: 90 0RF Continued Multi-DHA(with vit K) 27 mg iron-800 mcg-260 mg capsule 1 cap PO DAILY Qty: 100 2RF (DME) Blood Pressure Cuff Misc See Rx Instructions .Route Qty: 1 0RF Rx Instructions: As directed Discontinued aspirin 81 mg tablet,delayed release (DR/EC) 81 mg PO QDAY Discharge Orders: Discharge Order (Routine); Ordered 04/05/25 Ordered By: Niecy Pedraza Patient Education: Chronic Hypertension (DC), OB Vaginal/Breast Feeding Additional Instructions: Discharge instructions were reviewed with the patient including signs and symptoms of infection and home going medications.? Off Work or School for 6 weeks.? ?? Symptoms to report to doctor:? -Bleeding that saturates more than one pad per hour? -Passing clots larger than the size of a golf ball? -Pain not relieved by prescribed medication? -Fever above 100.4 degrees Fahrenheit? -A foul vaginal odor? -Difficulty in emotions, mood and functions? -Thoughts of hurting yourself and/or ? -Painful, reddened area in your breast? -Any drainage, redness or tenderness in your IV/epidural site? -Severe headache that doesn't improve after taking medications? -Changes in vision, including temporary loss of vision, blurred vision, and/or light sensitivity? -Upper abdominal pain (usually under ribs on the right side)? -Decrease in urination or painful, frequent urinating? -Chest pain? -Shortness of breath? -Tenderness or pain with redness and/swelling in the calf(s) of your leg? ?? Follow Up in clinic in 2 and 6 weeks.? ?? consultation services are available to all mothers and babies for the first year after delivery.? To make an appointment, please call [phone].? Activity Level: Activity as Tolerated Discharge Diet: Regular Follow Up Appointments: [facility] [Provider Group] Provider,Not a Local [Primary Care Provider, Family Practice] Forms: [facility] Info Instructions
[2025-04-05 15:16] LABS: Rapid Plasma Reagin (RPR) Non Reactive (Non Reactive)
== END 2025-04-05 12:40 | disposition home or self-care (01) | DRG 807 ==
PROVIDERS: Admitting Provider Obstetrics & Gynecology; Visit Provider Obstetrics & Gynecology
DX: O10.92 Unspecified pre-existing hypertension complicating childbirth (principal); Z37.0 Single live birth; O70.0 First degree perineal laceration during delivery; O99.824 Streptococcus B carrier state complicating childbirth; Z28.39 Other underimmunization status; G43.109 Migraine with aura, not intractable, without status migrainosus; Z3A.39 39 weeks gestation of pregnancy
CPT/HCPCS: 36415; 59200; 76815; 82565; 82570; 84156; 84450; 84460; 84520; 85018; 85025; 85461; 86592; 86850; 86870; 86880; 86900; 86901; 88307; A9270; J0290; J2003; J2791; J7120